=== PATIENT | female | born 1955 | race Caucasian/White ===

== ENCOUNTER 2018-12-30 17:09 | Emergency (ER) | payer OTHER ==
--- NOTE | 2018-12-30 18:11 | ER Document Report ---
HPI - HPI Time Seen by Provider: 12/30/18 17:51 Pain Level: Denies Notes: Patient is a 63-year-old female with no significant past medical history who presents the emergency department for possible rabies vaccination series. Patient states that she was bit by a stray cat that she feeds regularly 2 weeks ago. Patient states that she was in urgent care 8 days after that and was placed on Augmentin which worked really well for her. Patient states that she was talking with the health department and they recommend that she should come here for rabies vaccination. Patient states that she has been well. Patient states that she has been seeing the same cat acting normally and eating well and appearing well over the last couple days. She has not been symptomatic for any illness. She is eating and drinking without difficulty. She is urinating normally. No other concerns or complaints. Denies any headache, fever, head injury, neck pain, changes in vision/speech/mentation/hearing, URI, sore throat, chest pain, palpitations, syncope, cough, shortness of breath, wheeze, dyspnea, abdominal pain, nausea/vomiting/diarrhea, urinary retention, dysuria, hematuria, loss of control of bowel or bladder, numbness/tingling, saddle anesthesia, muscle paralysis/weakness, or rash. - ROS Systems Reviewed and Negative: Yes All other systems reviewed and negative Past Medical History - Social History Smoking Status: Never Smoker Family History: Reviewed & Not Pertinent Vertical Provider Document - CONSTITUTIONAL Agree With Documented VS: Yes Notes: PHYSICAL EXAMINATION: GENERAL: Well-appearing, well-nourished and in no acute distress. HEAD: Atraumatic, normocephalic. EYES: Pupils equal round and reactive to light, extraocular movements intact, sclera anicteric, conjunctiva are normal. ENT: Nares patent and without discharge. oropharynx clear without exudates. No tonsilar hypertrophy or erythema. Moist mucous membranes. NECK: Normal range of motion, supple without lymphadenopathy LUNGS: Breath sounds clear to auscultation bilaterally and equal. No wheezes rales or rhonchi. HEART: Regular rate and rhythm without murmurs, rubs, gallops. ABDOMEN: Soft, nontender, nondistended abdomen. No guarding, no rebound. No masses appreciated. Normal bowel sounds present. No CVA tenderness bilaterally. Musculoskeletal: FROM to passive/active. Strength 5+/5. Extremities: No cyanosis, clubbing, or edema b/l. Peripheral pulses 2+. Capillary refill less than 3 seconds. NEUROLOGICAL: Cranial nerves grossly intact. Normal speech, normal gait. Normal sensory, motor exams PSYCH: Normal mood, normal affect. SKIN: Warm, Dry, normal turgor, no rashes or lesions noted. No cellulitis or infection at the bite location. Appears well-healed. - INFECTION CONTROL TRAVEL OUTSIDE OF THE [place] IN LAST 30 DAYS: No Course - Re-evaluation Re-evalutation: 12/30/18 18:45 Patient is an afebrile, well-hydrated, 63-year-old female who presents to the emergency department for possible rabies vaccination. I thoroughly reviewed the risk, benefit, statistics, and scenarios with the patient for rabies vaccination/series. I even reviewed with Dr. Baron who agrees that this decision is to be made by the patient. I provided all the facts to the best of my knowledge and answered her questions to the best of my knowledge. I also provided patient with the most resourceful information that I had on up-to-date which states that typically house animals such as dogs, cats, and ferrets if they are able to be monitored for 10 days then delayed post exposure prophylaxis is appropriate. Patient has already visualized seeing this animal healthy well over 10 days after the incident; although, there is no set amount of time for observation. According to up-to-date typically those animals will have symptoms if they had rabies in their saliva at the time of the bite within that 10-day period. Patient states that she would like to hold off on any immunization at this time and is feeling very reassured at this time, but still is aware of the risk and benefit of this decision. Patient is aware that she can return at any time to receive rabies vaccination series if she becomes concerned or continues to worry. Patient states that she is going to see if there is an class 1 owner operator for the cat in the neighborhood first and if she has any other questions will talk to her family doctor or return to the emergency department. N patient is otherwise a symptomatic. Recheck with your PCM in 2-3 days. Return to the ED as needed. Patient is in agreement. - Vital Signs Vital signs: Temp Pulse Resp BP Pulse Ox 98.4 F 54 L 18 148/57 H 99 12/30/18 17:31 12/30/18 17:31 12/30/18 17:31 12/30/18 17:31 12/30/18 17:31 Discharge - Discharge Clinical Impression: Cat bite Qualifiers: Encounter type: initial encounter Qualified Code(s): W55.01XA - Bitten by cat, initial encounter Condition: Stable Disposition: HOME, SELF-CARE Additional Instructions: As reviewed, you have elected to not receive the rabies postexposure prophylaxis treatment at this time. Please continue to educate yourself as best as possible so that you are at peace with your decision. Do not hesitate to return for any reason or if should you change your mind. Keep the skin clean Wash with soap and water Tylenol/ibuprofen if needed Triple antibiotic ointment daily Take medication as directed Monitor for any worsening symptoms Recheck with your PCM in 3-5 days Consider consult with General Surgeon for ongoing/worsening symptoms Return to the ED with any worsening symptoms and/or development of fever, headache, chest pain, palpitations, syncope, shortness of breath, trouble breathing, abdominal pain, n/v/d, abscess, purulent discharge, red streaks, worsening swelling, or other worsening symptoms that are concerning to you. Forms: Elevated Blood Pressure Referrals: TRENT VILLANUEVA MD [EMERITUS] - Follow up as needed
[2018-12-30 19:14] VITALS: BP 119/55
== END 2018-12-30 19:19 | disposition home or self-care (01) ==
LOC: ER 17:09
DX: T14.8XXA Other injury of unspecified body region, initial encounter (principal); W55.01XA Bitten by cat, initial encounter
CPT/HCPCS: 99283

== ENCOUNTER → 2020-03-01 | Outpatient (CLI) | payer OTHER ==
--- NOTE | 2020-03-01 10:31 | WOMENS IMAGING REPORT ---
EXAM DESCRIPTION: 3D SCREENING MAMMO BILAT IMAGES COMPLETED DATE/TIME: 03/01/2020 9:58 am REASON FOR STUDY: Z12.31 SCREENING MAMMO Z12.31 ENCNTR SCREEN MAMMOGRAM FOR MALIGNANT NEOPLASM OF B RE COMPARISON: Multiple since 2008 EXAM PARAMETERS: Views: Standard craniocaudal and mediolateral oblique views of each breast recorded using digital acquisition and breast tomosynthesis. Read with the assistance of CAD. .[facility] [place] [facility] [employer] Operator Version 9.2 LIMITATIONS: None. FINDINGS: No suspicious masses, suspicious calcifications or architectural distortion. No areas of c oncern. IMPRESSION: NEGATIVE MAMMOGRAM. BIRADS 1. BREAST DENSITY: a. The breasts are almost entirely fatty. BIRAD: ASSESSMENT: 1 NEGATIVE RECOMMENDATION: ROUTINE SCREENING COMMENT: The patient has been notified of the results by letter per MQSA requirements. Additional no tification policies are in place for contacting patient with suspicious or incomplete findings. Quality ID #[id number]: The [employer] recommends an annual screening mammogram for women aged 40 years or over. This facility utilizes a reminder system to ensure that all patients receive reminder letters, and/or direct phone calls for appointments. This includes reminders for routine scr eening mammograms, diagnostic mammograms, or other Breast Imaging Interventions when appropriate. Th is patient will be placed in the appropriate reminder system. TECHNICAL DOCUMENTATION: FINDING NUMBER: (1) ASSESSMENT: (1) JOB ID: [id number] 2010 [employer]- All Rights Reserved Reading location - IP/workstation name: [id number]
== END ==
LOC: WI 09:25
PROVIDERS: ATTEND Obstetrics & Gynecology Gynecology
DX: Z12.31 Encounter for screening mammogram for malignant neoplasm of breast (principal)
CPT/HCPCS: 77063; 77067